=== PATIENT | female | born 1985 | race Caucasian/White ===

== ENCOUNTER 2020-09-08 17:01 | Emergency (ER) | payer OTHER ==
[~2020-09-08] VITALS: Ht 165.1 cm; Wt 70.0 kg
[2020-09-08] MEDS ORDERED: ACETAMINOPHEN 325 MG TABLET PO ONE (17:30)
[2020-09-08] MEDS ORDERED: IBUPROFEN 600 MG TABLET. PO ONE (17:30)
--- NOTE | 2020-09-08 17:39 | RAD ---
INDICATION: Reason: LEFT THUMB PAIN AFTER HYPEREXTENDED / Spl. Instructions: / History: COMPARISON: None. IMPRESSION: Left first digit: 3 views obtained. An acute fracture line is not seen. Electronically signed by: Kiel Salazar MD (09/08/2020 5:37 PM) [id number]
[2020-09-08] MEDS ORDERED: IBUP600T16 PO (17:58)
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
== END 2020-09-08 18:14 | disposition home or self-care (01) ==
LOC: ER 17:01
DX: S60.012A Contusion of left thumb without damage to nail, initial encounter (principal); X50.9XXA Other and unspecified overexertion or strenuous movements or postures, initial encounter; Y93.89 Activity, other specified; Y92.89 Other specified places as the place of occurrence of the external cause; Y99.8 Other external cause status
CPT/HCPCS: 29125; 73140; 99283

== ENCOUNTER 2020-12-08 08:10 | Emergency (ER) | payer OTHER ==
[~2020-12-08] VITALS: Ht 154.9 cm; Wt 75.5 kg
[~2020-12-08 08:10] MED LIST: IBUP600T16 PO
[2020-12-08 08:20] VITALS: BP 126/87
[2020-12-08] MEDS ORDERED: HYDROcodone/APAP 7.5/325MG 1 TAB TABLET PO ONE (08:30)
--- NOTE | 2020-12-08 08:33 | PHYS DOC ---
Past History Past Medical History: No Pertinent History Past Surgical History: No Surgical History, Other Alcohol Use: None Adult General Chief Complaint Chief Complaint: HAND PROBLEM HPI HPI Patient is a healthy 35-year-old female presenting for right hand injury. Onset was an hour and a half prior to arrival while at work. She works at local [employer], reports getting her right hand jammed in a closing [employer] door. Patient reports focal pain to second, third and fourth digits without any obvious abnormalities. No motor or sensory function changes, no neurologic deficits. Review of Systems Review of Systems Fourteen body systems of review of systems have been reviewed. See HPI for pertinent positives and negative responses, other lawrence all other systems are negative, non-pertinent or non-contributory Allergies Allergies Allergies Coded Allergies Type Severity Reaction Last Updated Verified No Known Drug Allergies 09/08/20 No Physical Exam Physical Exam Constitutional: Well developed, well nourished, no acute distress, non-toxic appearance. HENT: Normocephalic, atraumatic, bilateral external ears normal, oropharynx moist, no oral exudates, nose normal. Eyes: PERRLA, EOMI, conjunctiva normal, no discharge. Neck: Normal range of motion, no tenderness, supple, no stridor. Cardiovascular: Heart rate regular per monitor Lungs & Thorax: No respiratory distress or accessory muscle use, bilateral chest rise Abdomen: Abdomen soft, non-tender, bowel sounds present in all quadrants, no guarding or rebound, nonacute abdomen. Skin: Warm, dry, no erythema, no rash. Back: No tenderness, no CVA tenderness. Extremities: No cyanosis, no clubbing, no edema. Patient has tenderness to palpation along entirety of second, third and fourth digits of right hand with impaired range of motion during flexion due to pain. Formal/extensive examination of remaining right upper extremity grossly unremarkable, no anatomical snuffbox tenderness Neurologic: Alert and oriented X 3, medial/radial/ulnar nerves of right upper extremity intact, normal motor & sensory function, no focal deficits noted. Psychologic: Affect normal, judgement normal, mood normal. Current Patient Data Vital Signs Vital Signs Date Time Temp Pulse Resp B/P (MAP) Pulse Ox O2 Delivery O2 Flow Rate FiO2 12/08/20 08:20 97.5 67 16 126/87 (100) 100 Vital Signs Date Time Temp Pulse Resp B/P (MAP) Pulse Ox O2 Delivery O2 Flow Rate FiO2 12/08/20 08:40 18 100 12/08/20 08:20 97.5 67 126/87 (100) EKG EKG [] Radiology/Procedures Radiology/Procedures EXAM: XR HAND_RIGHT 3 VIEWS 12/08/2020 8:34 AM CLINICAL INDICATION: Second third and fourth fingers shut in door. COMPARISON: None TECHNIQUE: 3 views of the right hand FINDINGS: No acute fracture. Alignment is normal. Joint spaces are maintained. No soft tissue abnormality. IMPRESSION: No acute osseous abnormality. Electronically signed by: Zuleima Alejandro MD (12/08/2020 8:45 AM) [id number] Heart Score C/O Chest Pain: No Risk Factors: Risk Factors: DM, Current or recent (<one month) smoker, HTN, HLP, family history of CAD, obesity. Risk Scores: Risk Factors: DM, Current or recent (<one month) smoker, HTN, HLP, family hist ory of CAD, obesity. Course & Med Decision Making Course & Med Decision Making Discussed with the patient all findings and diagnostic testing. I discussed most likely diagnosis of likely self-limiting musculoskeletal injury of right hand with no apparent bony abnormalities per radiograph. I stressed need for continued supportive care practices and close outpatient follow-up to review today's ER visit. Strict return precautions were also discussed at length with good understanding by patient. Patient voiced understanding and agreement with the plan. Patient knows to come back for repeat evaluation if concerning signs or symptoms present prior to outpatient follow-up. Hemodynamically stable, ambulatory and well-appearing at time of disposition. Dragon Disclaimer Dragon Disclaimer This electronic medical record was generated, in whole or in part, using a voice recognition dictation system. Departure Departure: Impression: Primary Impression: Crushing injury of right hand Disposition: HOME / SELF CARE / HOMELESS Condition: STABLE Referrals: NON,STAFF (PCP) Patient Instructions: Contusion, RICE - Routine Care for Injuries Additional Instructions: It is likely that you have experienced a crush injury to your right hand that is causing you pain. As disclosed, there is no acute bony abnormalities present on radiographs obtained while in ER. As such, the best treatment for this injury is continued range of motion to prevent a frozen joint. A Rest, Ice, Compression, Elevation (RICE) strategy may also be helpful in the acute phase. Please utilize Tylenol and/or ibuprofen as needed for pain control. Please do not hesitate to come back for repeat evaluation if any concerning signs or symptoms present prior to outpatient primary care physician follow-up. It was a pleasure to take care of you and I wish you the best going forward RITO BEST DO Dec 08, 2020 08:33
--- NOTE | 2020-12-08 08:48 | RAD ---
EXAM: XR HAND_RIGHT 3 VIEWS 12/08/2020 8:34 AM CLINICAL INDICATION: Second third and fourth fingers shut in door. COMPARISON: None TECHNIQUE: 3 views of the right hand FINDINGS: No acute fracture. Alignment is normal. Joint spaces are maintained. No soft tissue abnorm ality. IMPRESSION: No acute osseous abnormality. Electronically signed by: Zuleima Alejandro MD (12/08/2020 8:45 AM) [id number]
== END 2020-12-08 09:55 | disposition home or self-care (01) ==
LOC: ER 08:10
DX: S67.21XA Crushing injury of right hand, initial encounter (principal); W23.0XXA Caught, crushed, jammed, or pinched between moving objects, initial encounter; Y93.89 Activity, other specified; Y92.89 Other specified places as the place of occurrence of the external cause; Y99.8 Other external cause status
CPT/HCPCS: 73130; 99283-25